=== PATIENT | female | born 1975 | race Caucasian/White ===

== ENCOUNTER 2016-07-03 15:06 | Emergency (ER) | payer BC, OTHER ==
[2016-07-03 16:25] VITALS: BP 150/84
--- NOTE | 2016-07-03 17:07 | RAD ---
Indication: Right forearm injury. 2 views of the right forearm demonstrates no fracture. No other bone or joint abnormality is identified. IMPRESSION: No fracture of the right forearm is noted.
--- NOTE | 2016-07-03 17:45 | UC ---
Minor Trauma HPI - HPI Summary HPI Summary: ON 06/22/16 HIT RIGHT FOREARM ON METAL KNOB OF CONFERENCE ROOM DOOR. SINCE TIME OF INJURY HAS HAD PAIN IN RIGHT FOREARM AND NODULE AT POINT OF INJURY. PAIN WITH FLEXION AND EXTENSION OF WRIST. - History of Current Complaint Chief Complaint: UC Stated Complaint: ARM INJURY Time Seen by Provider: 07/03/16 16:16 Hx Obtained From: Patient Hx Last Menstrual Period: 06/12/16 Onset/Duration: Sudden Onset, Lasting Weeks, Still Present Onset Of Pain: Post Accident Severity Initially: Moderate Severity Currently: Moderate Mechanism Of Injury: Direct Blow Aggravating Factor(s): Movement Alleviating Factor(s): Nothing Associated Signs And Symptoms: Positive: Swelling - Allergies/Home Medications Allergies/Adverse Reactions: Allergies Allergy/AdvReac Type Severity Reaction Status Date / Time Tuberculin Allergy Severe SEVERE Verified 09/22/15 09:34 [From Tuberculin PPD Elvira SWELLING Test] OF INJECTION SITE WITH REDNESS UP ARM PMH/Surg Hx/FS Hx/Imm Hx Previously Healthy: Yes Endocrine History Of: Denies: Diabetes Cardiovascular History Of: Reports: Hypertension Denies: Congestive Heart Failure - Surgical History Surgical History: Yes Surgery Procedure, Year, and Place: nose surgery-1989, leg reset-1979, vaginal x2. APENDECTOMY 2014 [facility]. foot surgery - Family History Known Family History: Negative: Blood Disorder - Social History Occupation: Employed Full-time Lives: With Family Alcohol Use: Occasionally Alcohol Amount: 1PER MONTH Substance Use Type: None Smoking Status (MU): Never Smoked Tobacco - Immunization History Most Recent Influenza Vaccination: fall 2015 Review of Systems Constitutional: Negative Skin: Bruising Eyes: Negative ENT: Negative Respiratory: Negative Cardiovascular: Negative Gastrointestinal: Negative Genitourinary: Negative Motor: Negative Musculoskeletal: Arthralgia - RIGHT FOREARM, Edema, Myalgia - RIGHT FOREARM Neurological: Negative Psychological: Negative All Other Systems Reviewed And Are Negative: Yes Physical Exam Triage Information Reviewed: Yes Appearance: Well-Appearing, No Pain Distress, Well-Nourished Vital Signs: Initial Vital Signs Temp 97.4 F 07/03/16 16:20 Pulse 72 07/03/16 16:20 Resp 16 07/03/16 16:20 BP 150/84 07/03/16 16:20 Pulse Ox 100 07/03/16 16:20 Vital Signs Reviewed: Yes Eye Exam: Normal ENT Exam: Normal ENT: Positive: Normal ENT inspection, Hearing grossly normal, Pharynx normal, TMs normal Dental Exam: Normal Neck exam: Normal Neck: Positive: Supple, Nontender Respiratory Exam: Normal Respiratory: Positive: Chest non-tender, Lungs clear, Normal breath sounds, No respiratory distress, No accessory muscle use Cardiovascular Exam: Normal Cardiovascular: Positive: RRR, No Murmur, Pulses Normal Abdominal Exam: Normal Abdomen Description: Positive: Nontender, No Organomegaly Musculoskeletal: Positive: Strength Intact, ROM Limited @ - PAIN WITH FLEXION & EXTENSION OF RIGHT WRIST, Edema @ - SMALL 2CM X 1CM NODULAR AREA IN DORSUM PF PROXIMAL FOREARM. Neurological Exam: Normal Psychological Exam: Normal Psychological: Positive: Normal Response To Family Skin Exam: Normal Minor Trauma Course/Dx - Differential Dx/Diagnosis Differential Diagnosis/HQI/PQRI: Contusion(s), Fracture, Hematoma(s), Sprain, Strain Provider Diagnoses: RIGHT FOREARM TENDONITIS. RIGHT FOREARM CONTUSION Discharge - Discharge Plan Condition: Stable Disposition: HOME Patient Education Materials: Contusion in Adults (ED), Tendinitis (ED) Referrals: Lyndsay Montemayor MD [Medical Doctor] - Xavier Gonsales MD [Primary Care Provider] - Additional Instructions: PHYSICAL THERAPY REFERRAL: You have been prescribed physical therapy. Treatments may include stretching, exercise, application of heat or cold, and other modalities. After an injury, PT can reduce swelling and pain. In recovery, PT is used to restore mobility and strength. Your specific treatment goals are: ___X__ Reduction of Swelling (EGS, US, ice as needed) ____X_ Pain Reduction (EGS, US, ice as needed) TENS Pack Fitting and Instruction Wound Hydrotherapy ___X__ Preservation of Mobility ___X__ Evangelical of Mobility ___X__ Strength Evangelical ____X_ Work or Sports Hardening This instruction sheet also serves as your PHYSICAL THERAPY REFERRAL! Please take it with you to the therapist, so he/she will be aware of your diagnosis and treatment plan. You may see the physical therapist of your choice for these treatments, but may wish to check with your insurance to be sure the provider you select is covered. It's important to see the doctor to whom you have been referred for follow up.
== END 2016-07-03 17:42 | disposition home or self-care (01) ==
LOC: UCEAST 15:06
DX: S50.11XA Contusion of right forearm, initial encounter (principal); W22.8XXA Striking against or struck by other objects, initial encounter; Y93.9 Activity, unspecified; Y92.89 Other specified places as the place of occurrence of the external cause; Z88.8 Allergy status to other drugs, medicaments and biological substances; M77.9 Enthesopathy, unspecified
CPT/HCPCS: 99212; G0463

== ENCOUNTER 2018-04-10 07:50 | Observation (INO) | payer BC ==
[~2018-04-10 07:50] MED LIST: Buffered Lidocaine 0.9% SYRIN* 5 ML/SYR SYRINGE INTRADERM ONE; Famotidine IV* 10 MG/ML 2 ML (20 mg) IV ONE
[2018-04-10] MEDS ORDERED: Famotidine IV* 10 MG/ML 2 ML (20 mg) ONE (08:06)
[2018-04-10] MEDS ORDERED: ceFAZolin 2 GM PREMIX in ORs 2 GM/50 ML BAG IVPB ONE (08:06)
[2018-04-10] MEDS ORDERED: Buffered Lidocaine 0.9% SYRIN* 5 ML/SYR SYRINGE ONE (08:07)
[2018-04-10 09:02] LABS: ABS Basophils 0.1 10^3/ul (0-0.2); ABS Eosinophils 0.2 10^3/ul (0-0.6); ABS Lymphocytes 1.2 10^3/ul (1.0-4.8); ABS Monocytes 0.3 10^3/ul (0-0.8); ABS Neutrophils 2.3 10^3/ul (1.5-7.7); ABS Nucleated RBC 0 10^3/ul; Eosinophil % 5.3 %; Hematocrit 40 % (35-47); Hemoglobin 13.5 g/dl (12.0-16.0); Lymphocyte % 29.4 %; Mean Corpuscular HGB Conc 34 g/dl (31-36); Mean Corpuscular Hemoglobin 30 pg (27-31); Mean Corpuscular Volume 88 fL (80-97); Mean Platelet Volume 7.2 fL (7.4-10.4); Nucleated Red Blood Cells % 0.1; Platelet Count 195 10^3/ul (150-450); Red Blood Count 4.53 10^6/ul (4.00-5.40); Red Cell Distribution Width 13 % (10.5-15); White Blood Count 4.2 10^3/ul (3.5-10.8)
[2018-04-10] MEDS ORDERED: Midazolam* 1 MG/ML 5 ML VIAL (5 MG) ONE (09:24)
[2018-04-10] MEDS ORDERED: Rocuronium* 10 MG/ML VIAL ONE (09:24)
[2018-04-10] MEDS ORDERED: fentaNYL* 50 MCG/ML 2 ML VIAL (100 MCG VIAL) ONE (09:24)
[2018-04-10] MEDS ORDERED: Bupivacaine 0.5% W/EPI SDV* 30 ML VIAL ONE (09:58)
[2018-04-10] MEDS ORDERED: DiMENhydriNATE IV* 50 MG/ML VIAL IV PUSH PRN (10:00)
[2018-04-10] MEDS ORDERED: Naloxone* 0.4 MG/ML 1 ML VIAL IV PRN (10:00)
[2018-04-10] MEDS ORDERED: Acetaminophen IV 1GM/100ML * 1,000 MG/100 ML VIAL IVPB ONE (10:00)
[2018-04-10] MEDS ORDERED: Succinylcholine* 20 MG/ML 10 ML VIAL ONE (10:52)
[2018-04-10] MEDS ORDERED: Lidocaine 2% PF * 5 ML VIAL ONE (10:52)
[2018-04-10] MEDS ORDERED: Ondansetron INJ* 2 MG/ML VIAL ONE (10:52)
[2018-04-10] MEDS ORDERED: Ketorolac INJ* 30 MG/ML 1 ML VIAL ONE (10:52)
[2018-04-10] MEDS ORDERED: DiMENhydriNATE IV* 50 MG/ML VIAL ONE ×2 (10:52→12:28)
[2018-04-10] MEDS ORDERED: Propofol* 10 MG/ML 20 ML BTL ONE (10:52)
[2018-04-10] MEDS ORDERED: Phenylephrine IV* 40 MCG/ML 10 ML SYRINGE ONE (10:52)
[2018-04-10] MEDS ORDERED: Dexamethasone IV* 4 MG/ML 1 ML (4 MG) ONE (10:52)
[2018-04-10] MEDS ORDERED: HYDROmorphone INJ1* 1 MG/ML SYRINGE ONE ×2 (11:09→12:45)
[2018-04-10] MEDS ORDERED: Acetaminophen IV 1GM/100ML * 100 ML ONE (11:45)
[2018-04-10] MEDS ORDERED: oxyCODONE/Acetamin 5/325 MG* TAB PO PRN (12:03)
[2018-04-10] MEDS ORDERED: Ibuprofen TAB* 600 MG PO PRN (12:03)
[2018-04-10] MEDS ORDERED: Ondansetron INJ* 2 MG/ML VIAL IV PRN (12:03)
[2018-04-10] MEDS ORDERED: HYDROmorphone INJ1* 1 MG/ML SYRINGE IV PRN (12:03)
[2018-04-10] MEDS: HYDROmorphone INJ1* 1 MG/ML SYRINGE IV PRN ×5 (12:45→13:15)
[2018-04-10] MEDS ORDERED: oxyCODONE/Acetamin 5/325 MG* TAB ONE (13:53)
[2018-04-10 18:08] LABS: Hematocrit 39 % (35-47); Hemoglobin 13.2 g/dl (12.0-16.0)
[2018-04-10] MEDS: oxyCODONE/Acetamin 5/325 MG* TAB PO PRN ×2 (18:10→22:54)
[2018-04-11] MEDS: oxyCODONE/Acetamin 5/325 MG* TAB PO PRN ×2 (03:24→09:49)
--- NOTE | 2018-04-11 08:33 | OP ---
DATE OF OPERATION: 04/10/18 - ROOM #350 DATE OF : 77 SURGEON: Oseas Paredes MD. HOME DEPOT REP: Dr. Gamboa. ANESTHESIA: General endotracheal tube. PRE-OP DIAGNOSIS: Endometriosis. POST-OP DIAGNOSIS: Endometriosis, stage 4. OPERATIVE PROCEDURE: Supracervical hysterectomy and bilateral salpingo- oophorectomy. FINDINGS: On laparoscopy, the anterior bladder flap was normal. The cul-de- sac was obliterated with both ovaries attached to the ovarian fossae and the cul -de-sac. The fallopian tubes appeared normal. The appendix was absent. The liver surface was smooth, and the gallbladder appeared normal. ESTIMATED BLOOD LOSS: 50 cc. COMPLICATIONS: None. DESCRIPTION OF PROCEDURE: The patient was identified, procedure identified as a supracervical hysterectomy, bilateral salpingectomy, possible BSO. The patient and I had discussed removal of ovaries if they were involved with the endometriosis. The patient was taken to the operating room, prepped and draped in the usual fashion in the dorsal lithotomy position under general anesthesia. A small infraumbilical incision was made and carried down through fat, fascia , and peritoneum. The Real retractor was placed and the GelPOINT was placed for use of laparoscopic instruments. Using the 30-degree 5 scope and the LigaSure, the above findings were noted. The ovaries were lysed from the cul-de -sac using sharp and blunt dissection until they were freely mobile. At this point, the infundibulopelvic ligament on the left was ligated and lysed and divided using the LigaSure. This was carried down through the broad ligament and the round ligament. A bladder flap was created via sharp and blunt dissection using the LigaSure and the uterine vein and artery were cauterized once a good bladder flap on the left side was obtained. Attention was turned to the right side. Again that ovary had been freed up using blunt and sharp dissection. The infundibulopelvic ligament was ligated and divided using LigaSure. Same procedure was carried out on the broad ligament and carried down through the round ligament. A bladder flap again was created via sharp and blunt dissection using the LigaSure and the uterine vessels, both vein and artery, were ligated using the LigaSure on the right side. The uterus was seen to juan luis. The vessels were divided on both sides. The SupraLoop was placed around the uterine body at the level of the endocervix and pulled tight. Care was taken to make sure that there was no bowel involved with the SupraLoop. The ClearView manipulator was removed and using a 110 of pure cut, the uterine body was excised from the cervix. Unipolar cautery was used to cauterize the endocervical os and unipolar cautery and the LigaSure were used to point ligate any bleeding areas on the cervical stump. The uterus and ovaries were placed within a GelPOINT bag that was placed, brought out through the incision. The ovaries and uterus were morcellated within the bag until all the specimen was removed. Copious irrigation was utilized and suctioned in the abdomen. Good hemostasis was verified. The fascia was then closed using 0 Polysorb in a running fashion. Good hemostasis was seen in the subcutaneous tissues and the skin was closed with 4-0 Vicryl in a subcuticular fashion and glue was applied. All sponge and instrument counts were correct and the patient went to recovery room in stable condition. [id number]/[facility] #: [id number] MIGUELANGEL
[2018-04-11] MEDS ORDERED: Losartan TAB* 25 MG PO SCH (09:00)
--- NOTE | 2018-04-11 11:01 | PN ---
Progress Note - Progress Note Date of Service: 04/11/18 SOAP: Subjective:discharge note []43 yo s/p supracervical hysterectomy bso. + flatus / + ambulation sans problems. reviewed finding with patient and decision to remove ovaries Objective: []viatls stable afebrile abdomen soft nontender incision clean an dry . + echymosis +bowel sounds Assessment: []Pod #1 s/p hysterectomy doing well Plan: []home today reviewed retirement aproach to endometriosis and hrt /ongoing management. no hrt for now.
[2018-04-11 12:32] VITALS: BP 146/66
--- NOTE | 2018-04-17 23:55 | DS ---
CC: Dr. Xavier Gonsales * DISCHARGE SUMMARY: DATE OF ADMISSION: DATE OF DISCHARGE: 04/11/18 PRIMARY CARE PHYSICIAN: Dr. Xavier Gonsales. DISCHARGE MEDICATIONS: The patient was discharged on: 1. Motrin 600 mg 1 p.o. q.6 hours. 2. Percocet 1 p.o. q.4 hours p.r.n. pain. She was to stop her Lupron and follow up in the office in 1 week. HISTORY: This is a 43-year-old with clinical diagnosis of endometriosis, responded to Lupron therapy. The patient desires more definitive Rx of endometriosis and dysmenorrhea. PAST MEDICAL/SURGICAL HISTORY: Significant for previous vaginal x2, psoriasis, flexible sigmoidoscopy with biopsies, hypertension, and headache. She had an appendectomy in September 2013 and bunionectomies and she had several fractured limbs, arms, and legs. FAMILY HISTORY: Really noncontributory. PHYSICAL EXAMINATION ON ADMISSION: Blood pressure on admission 142/92, weight was 191, BMI is 31. HEENT: Within normal limits. Neck was supple. Chest was clear to auscultation. Abdomen is soft, nontender. HOSPITAL COURSE: The patient was taken to the operating room on 04/10/18, underwent a supracervical hysterectomy and bilateral salpingo-oophorectomy. At the time of her surgery, both ovaries were found to be adherent to the pelvis and the cul-de-sac giving her stage IV endometriosis. For this reason, both ovaries were removed. She did well postoperatively and went home on postoperative day #1. Pathology showed endometriosis of both ovaries. Her postop CBC was 13.2 and 39. [id number]/[facility] #: [id number] [facility]
== END 2018-04-11 13:20 | disposition home or self-care (01) ==
LOC: OR 07:50 → SSU 12:03
PROVIDERS: ADMIT Obstetrics & Gynecology; ATTEND Obstetrics & Gynecology
DX: N80.9 Endometriosis, unspecified (principal); R10.30 Lower abdominal pain, unspecified
CPT/HCPCS: 36415; 81025; 85014; 85018; 85025; 86850; 86900; 86901; 88307; 96374; 96375; 96376; A9270-GY; G0378; J0330; J0690; J1100; J1170; J1240; J1885; J2250; J2405; J2704; J3010

== ENCOUNTER 2019-09-08 13:31 | Day surgery (SDC) | payer BC ==
[~2019-09-08 13:31] MED LIST changes: -Buffered Lidocaine 0.9% SYRIN* 5 ML/SYR SYRINGE INTRADERM ONE; +Buffered Lidocaine 1% SYRIN 1 ml INTRADERM ONE; +Famotidine IV 10 MG/ML 2 ml VIAL (20 mg) IV ONE; +Famotidine IV 10 MG/ML 2 ml VIAL (20 mg) ONE; -Famotidine IV* 10 MG/ML 2 ML (20 mg) IV ONE; +Lactated Ringers 1000 ml BAG 1,000 ML IV SCH; +cefTRIAXone(*) 2 GM ADDV.VIAL IVPB ONE
[2019-09-08] MEDS ORDERED: Iohexol 180 (CONTRAST) 10 ML SDV IV ONE (13:50)
[2019-09-08] MEDS ORDERED: fentaNYL 100 mcg/2 ml 50 MCG/ML VIAL ONE ×2 (14:56→16:27)
[2019-09-08] MEDS ORDERED: Midazolam 2 mg/2 ml VIAL 1 mg/ml 2 ml VIAL (2 mg) ONE (14:57)
[2019-09-08] MEDS ORDERED: Propofol 10 MG/ML 20 ML BTL ONE (14:57)
[2019-09-08] MEDS ORDERED: Lidocaine 2% PF 5 ML VIAL ONE (14:57)
[2019-09-08] MEDS ORDERED: Ondansetron 4 mg VIAL 2 MG/ML 2 ml VIAL ONE ×2 (14:57→16:27)
[2019-09-08] MEDS ORDERED: Dexamethasone IV 4 MG/ML VIAL 1 ml VIAL ONE (14:57)
[2019-09-08] MEDS ORDERED: Cisatracurium 2 MG/ML MDV 5 ML ONE (15:02)
[2019-09-08] MEDS ORDERED: Glycopyrrolate IV 0.2 MG/ML 1 ML VIAL ONE (15:59)
[2019-09-08] MEDS ORDERED: Neostigmine Methylsulfate 3 MG/3 ML SYRINGE ONE (15:59)
[2019-09-08] MEDS ORDERED: HYDROcodone/ACETAMIN 5/325 mg TAB PO PRN (16:23)
[2019-09-08] MEDS ORDERED: DiMENhydriNATE IV 50 mg/ml 1 ml VIAL IV PUSH PRN (16:23)
[2019-09-08] MEDS ORDERED: Ondansetron 4 mg VIAL 2 MG/ML 2 ml VIAL IV PRN (16:23)
[2019-09-08] MEDS ORDERED: Naloxone 0.4 mg VIAL 0.4 mg/ml 1 ml VIAL IV PRN (16:23)
[2019-09-08] MEDS ORDERED: diPHENhydraMINE IV 50 MG/ML 1 ml VIAL (BENADRYL) IV PRN (16:23)
[2019-09-08] MEDS: fentaNYL 100 mcg/2 ml 50 MCG/ML VIAL IV PRN ×2 (16:28→16:53)
[2019-09-08] MEDS ORDERED: HYDROcodone/ACETAMIN 5/325 mg TAB ONE (17:45)
[2019-09-08 17:51] VITALS: BP 141/89
[2019-09-11] MEDS ORDERED: Scopolamine PATCH Remove NOTE PATCH OFF ONE (16:23)
== END 2019-09-08 17:56 | disposition home or self-care (01) ==
LOC: OR 13:31
PROVIDERS: ATTEND Urology

== ENCOUNTER 2022-02-26 10:31 | Observation (INO) ==
[2022-02-26 10:59] LABS: ABS Monocytes 0.3 10^3/ul (0-0.8); ABS Neutrophils 2.6 10^3/ul (1.5-7.7); Eosinophil % 0.7 %; Hematocrit 42 % (35-47); Hemoglobin 14.1 g/dL (12.0-16.0); Lymphocyte % 25.6 %; Mean Corpuscular HGB Conc 34 g/dL (31-36); Mean Corpuscular Hemoglobin 29 pg (27-31); Mean Corpuscular Volume 88 fL (80-97); Mean Platelet Volume 7.1 fL (7.4-10.4); Platelet Count 194 10^3/uL (150-450); Red Blood Count 4.78 10^6 /uL (3.70-4.87); Red Cell Distribution Width 13 % (10-15); White Blood Count 3.9 10^3/uL (3.5-10.8)
[2022-02-26 11:15] LABS: INR 0.95 (0.89-1.11)
[2022-02-26 11:23] LABS: High Sens Troponin Baseline < 3 pg/mL (<15)
[2022-02-26 11:37] LABS: ALT 20 U/L (7-52); AST 19 U/L (13-39); Albumin 4.7 g/dL (3.2-5.2); Alkaline Phosphatase 40 U/L (35-149); Anion Gap 6 mmol/L (2-11); Blood Urea Nitrogen 13 mg/dL (6-24); CO2 Carbon Dioxide 28 mmol/L (22-32); Calcium 9.4 mg/dL (8.6-10.3); Chloride 108 mmol/L (101-111); Globulin 2.3 g/dL (2-4); Glucose 97 mg/dL (70-100); Sodium 142 mmol/L (135-145); eGFR CKD-EPI 87.3 (>60)
[2022-02-26 12:37] LABS: High Sensitivity Troponin 1 Hr < 3 pg/mL (<15)
[2022-02-26] MEDS: Heparin 5000 UNITS/ML 1 mL VIAL SUBCUT SCH (20:04)
[2022-02-27 06:45] LABS: ABS Eosinophils 0.1 10^3/ul (0-0.6); ABS Lymphocytes 1.3 10^3/ul (1.0-4.8); ABS Monocytes 0.3 10^3/ul (0-0.8); ABS Neutrophils 2.7 10^3/ul (1.5-7.7); Eosinophil % 1.4 %; Hematocrit 42 % (35-47); Hemoglobin 14.2 g/dL (12.0-16.0); INR 1.02 (0.89-1.11); Lymphocyte % 29.7 %; Mean Corpuscular HGB Conc 34 g/dL (31-36); Mean Corpuscular Hemoglobin 30 pg (27-31); Mean Corpuscular Volume 88 fL (80-97); Mean Platelet Volume 7.4 fL (7.4-10.4); Platelet Count 190 10^3/uL (150-450); Red Cell Distribution Width 13 % (10-15); White Blood Count 4.4 10^3/uL (3.5-10.8)
[2022-02-27 07:13] LABS: Calcium 9.5 mg/dL (8.6-10.3); Potassium 4.4 mmol/L (3.5-5.0); eGFR CKD-EPI 88.5 (>60)
[2022-02-27] MEDS ORDERED: Aminophylline 25 MG/ML VIAL ONE (08:28)
[2022-02-27] MEDS ORDERED: Regadenoson 0.4 MG/5 ML SYRINGE ONE (08:28)
[2022-02-27] MEDS: Heparin 5000 UNITS/ML 1 mL VIAL SUBCUT SCH (11:06)
[2022-02-27 15:02] VITALS: BP 145/100
[2022-02-27 18:07] LABS: HDL Cholesterol 51.4 mg/dL
== END 2022-02-27 13:45 | disposition home or self-care (01) ==
LOC: EDHOLD 10:31 → ED 10:31 → SUATTDRO 15:22 → EDHOLD 17:15 → MEDTELE 17:41
PROVIDERS: ADMIT Internal Medicine; ATTEND Hospitalist